=== PATIENT | male | born 1960 | race Caucasian/White ===

== ENCOUNTER → 2024-06-01 | Outpatient (CLI) | payer BC, OTHER, SELFPAY ==
--- NOTE | 2024-06-01 13:00 | XR_ITS ---
Examination: CT maxillofacial, without intravenous contrast. 2-D sagittal reconstructions. 3-D reconstructions. Date and time of exam:June 01, 2024 1628 hours INDICATIONS: Chronic sinus pressure and pain beginning 4 years ago CTDI: vol (mGy):7.48 DLP: (mGycm):118 Technique: Multiple axial images of maxillofacial region, 3.0 mm slice thickness. 2-D sagittal and coronal reconstructions. 3-D reconstructions. Low dose protocols were performed. One or more of the following dose reduction techniques were used; automated exposure control, adjustment of the mA and/or KV according to patient size, use of iterative reconstruction technique. Findings: Fluid in the frontal air cells Prominent mucosal disease ethmoid air cells with partial occlusion bilateral ostiomeatal complexes Mucosal thickening up to 4 mm in the maxillary antra and sphenoid air cells No nasopharyngeal mass Negative for otitis media Adequate mastoid aeration The optic globes exhibit symmetry No cerebral mass lesion is noted IMPRESSION: Chronic sinus disease as above Acute frontal sinusitis
== END | disposition home or self-care (01) ==
LOC: CCTX 13:11
PROVIDERS: Referring Provider Otolaryngology; Visit Provider Otolaryngology
DX: J32.9 Chronic sinusitis, unspecified (principal); J01.10 Acute frontal sinusitis, unspecified
CPT/HCPCS: 70486

== ENCOUNTER 2024-08-18 09:00 | Day surgery (SDC) | payer BC, OTHER, SELFPAY ==
--- NOTE | 2024-08-17 06:52 | EKG_ITS ---
[facility] Test Date: 2024-08-17 Pat Name: IBETH CORNEJO Department: Room: - Gender: Male [employer]: [facility] : 1960 Requested By: Feliciano Keith Order Number: [id number] Reading MD: Feliciano Keith Measurements Intervals Midway Rate: 61 P: 96 RI: 166 QRS: 100 QRSD: 87 T: 118 QT: 371 QTc: 376 Interpretive Statements SINUS RHYTHM LATERAL MYOCARDIAL INFARCTION , PROBABLY RECENT [40+ ms Q WAVE AND/OR ST/T ABNORMALITY IN I/aVL/V5/V6] ACUTE AL No previous ECG available for comparison /[id number]/[email or web address]/[id number].pdf
[2024-08-17 09:42] VITALS: BMI 27.8
[2024-08-17 11:15] LABS: Alanine Aminotransferase 16 U/L (10-49); Albumin, Serum 4.7 gm/dL (3.4-4.8); Albumin/Globulin Ratio 1.7 (1.2-2.2); Alkaline Phosphatase 54 U/L (46-116); Anion Gap 8 (7-16); Aspartate Amino Transferase 21 U/L (0-34); BUN/Creatinine Ratio 13 Ratio (12-20); Bilirubin,Total 0.6 mg/dL (0.3-1.2); Blood Urea Nitrogen 16 mg/dL (9-23); Carbon Dioxide 27.8 mMol/L (20.0-31.0); Chloride 105 mMol/L (98-107); Creatinine (Component) 1.2 mg/dL (0.6-1.3); Estimated Creatinine Clearance 66.2 mL/min (>60); Globulin 2.7 gm/dL (2.3-3.5); Glucose 93 mg/dL (74-106); Osmolality,Calculated 282 (275-295); Potassium 4.6 mMol/L (3.4-5.1); Sodium 141 mMol/L (136-145); Total Protein 7.4 gm/dL (5.7-8.2); eGFR > 60 See Note
[2024-08-18] VITALS (8 sets, daily range): BP systolic 131–140; BP diastolic 75–95; PULSE 62–72; RESP 12–18; TEMP 36.4–36.9; O2SAT 96–100; BMI 26.9
[2024-08-18] MEDS: OXYMETAZOLINE NAS SPRY 0.05% 15 ML BTL NASAL (09:38)
[2024-08-18] MEDS: RINGERS LACTATED 1000 ML 1,000 ML 20 ML IV (09:56)
--- NOTE | 2024-08-18 10:19 | SUR.PREOP ---
1000: informed Dr. Daily for EKG results, no new order received. Pt had no c/o chest pain or palpitations.
--- NOTE | 2024-08-18 11:41 | ESOP_ITS ---
Date of Procedure 08/18/24 Pre Op Diagnosis Bilateral chronic pansinusitis Bilateral inferior turbinate hypertrophy Nasal septal deviation with obstruction Post Op Diagnosis Bilateral chronic pansinusitis Bilateral inferior turbinate hypertrophy Nasal septal deviation with obstruction Procedure Intranasal septoplasty Bilateral endoscopic frontal recess exploration Bilateral endoscopic anterior ethmoidectomy Bilateral endoscopic maxillary antrostomy Bilateral submucous resection of inferior turbinates Findings Nasal septal deviation primarily to the left side with spurring along the floor. There is inflammation of the mucosa and polyps in each middle meatus. Ethmoid mucosa was inflamed as well. Procedure Description Indications: This is a 63-year-old male with chronic nasal congestion and chronic sinusitis as documented on exam and CT findings. Patient wished to proceed with surgical intervention after failure of medical therapy. Risk of bleeding infection nasal deformity and brain injury were all discussed as well as potential need for further surgery. Anticipated outcomes were discussed as well. Patient was transferred to the operative suite where he was anesthetized and intubated and sterilely draped. Timeout was performed. The nasal septum as well as the inferior turbinates and then later the uncinate processes were injected with the lidocaine solution. Approximately 6 cc total were used. Caudal rim incision was made on the left side of the septum mucosal flap elevated off the septal cartilage and bone. The perpendicular plate was from the quadrangular cartilage with a freer elevator and mucosal flap elevated off of the right side. There was moderate oozing throughout this process and the rest of the surgery. The perpendicular plate was incised with a double-action scissors and the bony fragments removed. The inferior spurring was fractured over with a caudal elevator. The 0 degree scope was then brought into the field and the left middle turbinate middle meatus visualized. Middle turbinate was then medialized and the maxillary sinus ostia located with the small curved suction. It was expanded with the suction and the Richard-Cut forceps removing a portion of the posterior lip of the ostia. Sinus was suctioned there was no purulent drainage present. Ethmoid bulla was then opened with a Machado suction and dissection carried back through the anterior cells with the Eulalio forceps. Richard-Cut forceps were then used for the cells in the frontal recess region. Oozing was present at the middle meatus was packed with a soaked neuro pledget. Went over to the right side then with a similar procedure medializing the middle turbinate locating in creating the maxillary antrostomy on the right side and then opening up the anterior cells. Again bleeding was present on this side so this middle meatus was packed. The neuro pledget was removed from the left side and the frontal recess was located with the frontal sinus seeker and then up-biting Richard-Cut forceps were used to remove tissue from overlying this area. The sinus was cannulized with the small curved suction. Neuro pledget was then placed back into the sinus. The right neural pledget was removed in a similar procedure for the frontal recess area and anterior ethmoid cells were performed. Any residual polypoid tissue that was present was removed with a shaver blade. Neuro pledgets were then removed from the ethmoid sinuses then they were packed with MeroGel soaked in Afrin. The inferior turbinates were reduced in submucosal plane first on the left and then the right side. The 2.9 mm turbinate shaver blade was used to perform this on insertion and withdrawal. The entry sites were then cauterized with suction cautery. The mucosal flaps were then reapproximated to the underlying septal cartilage with a 4-0 plain gut suture. This was used to close the rim incision as well. Patient was then tra nsferred to the recovery room in stable condition Anesthesia GETA Pathology / specimen Other (Left and right sinus contents) Estimated Blood Loss 75 Surgeon Feliciano Clemente DO Surgical Staff Operation Date: 08/18/24 11:00 Case Staff Anesthesiologist: Kendall Daily
--- NOTE | 2024-08-18 12:02 | SUR.PHASEI ---
1202 Patient arrived to recovery resting comfortably in [facility], on oxygen 8L via oxy mask, breathing unlabored, vital signs stable, denies pain, dressing intact to below nose; gauze and paper tape, no bleeding noted, denies nausea, report received from Jackson NEGRON/Michelle NEGRON and Dr. Daily
--- NOTE | 2024-08-18 13:07 | SUR.PHASEII ---
1307 Report given to Jacklyn Hamilton RN, patient sitting up in bed, awake and alert, eating ice chips, discharge instructions given to patient and his , and ready to proceed with discharge.
--- NOTE | 2024-08-18 13:18 | SUR.PHASEII ---
1318:pt discharge to home via wheelchair. p[t alert and oriented to name, place and time. denies any pain or discomfort. denies any nausea and vomiting. no s/s of resp, distress or discomfort. scant amount of bleeding noted from nasal pad. discharge instructions given by Monique Cardozo RN to and patient, verbalizes understanding. all belongings brought given back to patient.
== END 2024-08-18 13:18 | disposition home or self-care (01) ==
PROVIDERS: PCP Family Medicine; Referring Provider Otolaryngology; Visit Provider Otolaryngology
PROC: (CPT 30520; principal; 2024-08-18 10:45)
DX: J34.2 Deviated nasal septum (principal); J34.3 Hypertrophy of nasal turbinates; J32.4 Chronic pansinusitis; J33.0 Polyp of nasal cavity; H91.93 Unspecified hearing loss, bilateral; G47.33 Obstructive sleep apnea (adult) (pediatric); J30.9 Allergic rhinitis, unspecified; E78.00 Pure hypercholesterolemia, unspecified; Z01.810 Encounter for preprocedural cardiovascular examination; Z85.828 Personal history of other malignant neoplasm of skin; Z90.49 Acquired absence of other specified parts of digestive tract
CPT/HCPCS: 30520; 30140; 31276; 31254; 31256; 36415; 80053; 93005; A4217; A4649; J1100; J1885; J2250; J2405; J2704; J3010; J3490; J7040; J7120; A9270

== ENCOUNTER → 2024-11-01 | Outpatient (CLI) | payer BC, OTHER, SELFPAY ==
[2024-11-01 08:34] LABS: Collection Type, Urine Clean Catch; Squamous Epithelial Cell,Urine 0 /hpf (0-5)
[2024-11-01 09:06] LABS: Bilirubin,Urine Negative (Negative); Blood,Urine Negative (Negative); Clarity,Urine Clear (Clear/Hazy); Color,Urine Lt-Yellow (Lt Yel-Yel); Glucose, Urine Negative (Negative); Ketones,Urine Negative (Negative); Leukocyte Esterase,Urine Negative (Negative); Nitrite,Urine Negative (Negative); PH,Urine 6.5 (5.0-7.0); Protein,Urine Negative (Neg - Trace); RBC,Urine 2 /hpf (0-3); Specific Gravity,Urine 1.019 (1.001-1.035); Urobilinogen,Urine Negative mg/dL (0.0-1.0); WBC,Urine < 1 /hpf (0-5)
[2024-11-01 09:07] LABS: Basophils # (Auto) 0.1 Thou/mm3 (0.0-0.2); Basophils % (Auto) 1 % (0-2.5); Eosinophils # (Auto) 0.4 Thou/mm3 (0.0-0.5); Eosinophils % (Auto) 6 % (0-10); Hematocrit 42.8 % (41.0-53.0); Hemoglobin 14.5 g/dL (13.5-16.0); Immature Granulocytes Auto 0.06 Thou/mm3 (0.00-0.00); Lymphocytes # (Auto) 1.9 Thou/mm3 (1.0-4.8); Lymphocytes % (Auto) 28 % (10-50); Mean Corpuscular HGB Conc 33.9 g/dl (31.0-37.0); Mean Corpuscular Hemoglobin 30.5 pg (25.0-35.0); Mean Corpuscular Volume 90 fL (80-100); Monocytes # (Auto) 0.5 Thou/mm3 (0.0-0.8); Monocytes % (Auto) 7 % (0-12); Neutrophils # (Auto) 4.1 Thou/mm3 (1.8-7.7); Neutrophils % (Auto) 58 % (37-80); Nucleated Red Blood Cell # 0.00 Thou/mm3 (0.00-0.00); Nucleated Red Blood Cell % 0 /100 WBC (0); Platelet Count 197 Thou/mm3 (140-440); RDW Standard Deviation 39.9 fL (35.1-43.9); Red Blood Count 4.75 Miln/mm3 (4.50-5.90); White Blood Count 7.0 Thou/mm3 (3.8-10.6)
[2024-11-01 09:17] LABS: Alanine Aminotransferase 17 U/L (10-49); Albumin, Serum 4.5 gm/dL (3.4-4.8); Albumin/Globulin Ratio 1.8 (1.2-2.2); Alkaline Phosphatase 54 U/L (46-116); Anion Gap 4 (7-16); Aspartate Amino Transferase 21 U/L (0-34); BUN/Creatinine Ratio 12 Ratio (12-20); Bilirubin,Total 0.7 mg/dL (0.3-1.2); Blood Urea Nitrogen 13 mg/dL (9-23); Calcium 9.3 mg/dL (8.3-10.6); Calcium (Corrected) 9.3 mg/dL (8.5-10.1); Carbon Dioxide 28.1 mMol/L (20.0-31.0); Cardiac Risk Estimate 4.4 RATIO (4.0-6.7); Chloride 110 mMol/L (98-107); Cholesterol 177 mg/dL (132-200); Creatinine (Component) 1.1 mg/dL (0.6-1.3); Globulin 2.5 gm/dL (2.3-3.5); Glucose 96 mg/dL (74-106); HDL Cholesterol 40 mg/dL (40-60); LDL Cholesterol,Calculated 102 mg/dL (0-130); Osmolality,Calculated 283 (275-295); Potassium 4.7 mMol/L (3.4-5.1); Sodium 142 mMol/L (136-145); Total Protein 7.0 gm/dL (5.7-8.2); Triglycerides 176 mg/dL (30-150); eGFR > 60 See Note
== END | disposition home or self-care (01) ==
LOC: COPL 07:54
PROVIDERS: PCP Family Medicine; Referring Provider Family Medicine; Visit Provider Family Medicine
DX: Z00.00 Encounter for general adult medical examination without abnormal findings (principal); E78.2 Mixed hyperlipidemia; B35.1 Tinea unguium
CPT/HCPCS: 36415; 80053; 80061; 81001; 85025

== ENCOUNTER → 2025-03-16 | Outpatient (CLI) | payer BC, OTHER, SELFPAY ==
[2025-03-16 08:52] LABS: Prostate Specific Antigen 3.00 ng/mL (0-4.00)
[2025-03-16 08:56] LABS: Alanine Aminotransferase 24 U/L (10-49); Albumin, Serum 5.0 gm/dL (3.4-4.8); Albumin/Globulin Ratio 2.5 (1.2-2.2); Alkaline Phosphatase 55 U/L (46-116); Anion Gap 9 (7-16); Aspartate Amino Transferase 25 U/L (0-34); BUN/Creatinine Ratio 14 Ratio (12-20); Bilirubin,Total 0.5 mg/dL (0.3-1.2); Blood Urea Nitrogen 17 mg/dL (9-23); Calcium 9.5 mg/dL (8.3-10.6); Calcium (Corrected) 9.5 mg/dL (8.5-10.1); Carbon Dioxide 29.2 mMol/L (20.0-31.0); Cardiac Risk Estimate 3.7 RATIO (4.0-6.7); Chloride 106 mMol/L (98-107); Cholesterol 151 mg/dL (132-200); Creatinine (Component) 1.2 mg/dL (0.6-1.3); Globulin 2.0 gm/dL (2.3-3.5); Glucose 95 mg/dL (74-106); HDL Cholesterol 41 mg/dL (40-60); LDL Cholesterol,Calculated 83 mg/dL (0-130); Osmolality,Calculated 288 (275-295); Potassium 4.5 mMol/L (3.4-5.1); Sodium 144 mMol/L (136-145); Total Protein 7.0 gm/dL (5.7-8.2); Triglycerides 135 mg/dL (30-150); eGFR > 60 See Note
== END | disposition home or self-care (01) ==
LOC: COPL 06:42
PROVIDERS: PCP Family Medicine; Referring Provider Family Medicine; Visit Provider Family Medicine
DX: E78.2 Mixed hyperlipidemia (principal); I10 Essential (primary) hypertension; B35.1 Tinea unguium
CPT/HCPCS: 36415; 80053; 80061; 84153